=== PATIENT | female | born 1960 | race Caucasian/White ===

== ENCOUNTER → 2017-10-12 10:17 | Outpatient (CLI) | payer OTHER, SELFPAY ==
[2017-10-12 12:30] LABS: Anion Gap 8 (5-15); BUN 14 mg/dL (7-18); BUN/Creat Ratio 17.2 RATIO (10-20); Calcium,Total 8.7 mg/dL (8.5-10.1); Chloride 107 mmol/L (98-107); Cholesterol 204 mg/dL (200); Creatinine, Serum 0.82 mg/dL (0.55-1.02); EST Glomerular Filtration Rate 77 mL/min (>60); Est Glom Filt Rate - Afr Amer 94 mL/min (>60); Glucose 84 mg/dL (74-106); High Density Lipoprotein 75 mg/dL; Potassium 4.1 mmol/L (3.5-5.1); Sodium Level 141 mmol/L (136-145); Triglycerides 93 mg/dL; Very Low Density Lipoprotein 19 mg/dL (5-40)
== END ==
PROVIDERS: Family Provider Family Medicine; PCP Family Medicine; Visit Provider Family Medicine
DX: Z00.00 Encounter for general adult medical examination without abnormal findings (principal)
CPT/HCPCS: 36415; 80048; 80061; 82306; 84443

== ENCOUNTER → 2017-11-02 08:28 | Outpatient (CLI) | payer OTHER, SELFPAY ==
--- NOTE | 2017-11-02 08:30 | BI_ITS ---
MAMMOGRAPHY - BILATERAL DIAGNOSTIC REASON FOR EXAM: Female, 57 years old. Genetic abnormality. PERTINENT HISTORY: Grandmother with breast cancer. TECHNIQUE: Digital bilateral breast nilam (3D mammographic acquisition) in the CC and MLO projections. 2-D mediolateral oblique (MLO) and craniocaudad (CC) views of both breasts were obtained. CAD: Full Field Digital Mammography with Computer Added Detection was performed. COMPARISON: No comparison mammograms available at this time. If any prior films become available, an addendum to this report can be generated. FINDINGS: Breast Composition: The breasts are heterogeneously dense, which may obscure small masses. There are no dominant masses or suspicious calcifications. No other significant abnormalities are identified. BI/SCREENING MAMM (CAD), BILAT IMPRESSION: Negative diagnostic mammogram. Yearly followup mammogram recommended. (A) ASSESSMENT CATEGORY: BIRADS Category 2: Benign. A letter regarding these results will be sent to the patient by the facility within 30 days. Approximately 10% of breast cancers are not detected by mammography. A normal mammogram should not delay biopsy of a clinically suspicious abnormality. Electronically Signed: Lucas Mcknight MD at 15:23 EDT Tel [phone], Service support ,
== END ==
PROVIDERS: Family Provider Family Medicine; PCP Family Medicine; Visit Provider Family Medicine
DX: Z00.00 Encounter for general adult medical examination without abnormal findings (principal); Z12.31 Encounter for screening mammogram for malignant neoplasm of breast
CPT/HCPCS: 77063; 77067

== ENCOUNTER → 2018-11-08 | Outpatient (CLI) | payer OTHER, SELFPAY ==
[2017-05-25 07:01] VITALS: BMI 24.0
[2018-11-08 13:09] LABS: Anion Gap 3 (5-15); BUN 14 mg/dL (7-18); BUN/Creat Ratio 19.7 RATIO (10-20); Calcium,Total 9.3 mg/dL (8.5-10.1); Chloride 107 mmol/L (98-107); Cholesterol 213 mg/dL (200); Creatinine, Serum 0.71 mg/dL (0.55-1.02); EST Glomerular Filtration Rate 90 mL/min (>60); Est Glom Filt Rate - Afr Amer 109 mL/min (>60); Glucose 77 mg/dL (74-106); High Density Lipoprotein 78 mg/dL; Potassium 4.2 mmol/L (3.5-5.1); Sodium Level 141 mmol/L (136-145); Thyroid Stim Hormone (TSH) 0.23 uIU/mL (0.358-3.74); Triglycerides 70 mg/dL; Very Low Density Lipoprotein 14 mg/dL (5-40)
[2018-11-08 14:19] LABS: Vitamin D,25 Hydroxy 17.7 ng/mL (29.95-100.01)
[2018-11-10 08:39] LABS: Hep C Antibodies <0.1 s/co ratio (0.0-0.9)
== END | disposition home or self-care (01) ==
PROVIDERS: Family Provider Family Medicine; PCP Family Medicine; Referring Provider Family Medicine; Visit Provider Family Medicine
DX: Z00.00 Encounter for general adult medical examination without abnormal findings (principal)
CPT/HCPCS: 36415; 80048; 80061; 82306; 84443; 86803

== ENCOUNTER → 2019-04-23 07:43 | Outpatient (CLI) | payer OTHER, SELFPAY ==
--- NOTE | 2019-04-23 07:50 | BI_ITS ---
MAMMOGRAPHY - BILATERAL SCREENING REASON FOR EXAM: Female, 58 years old. Routine annual screening examination. PERTINENT HISTORY: Mother with breast cancer. Grandmother with breast cancer. TECHNIQUE: Digital bilateral breast helen (3D mammographic acquisition) in the CC and MLO projections. 2-D mediolateral oblique (MLO) and craniocaudad (CC) views of both breasts were obtained. CAD: Full Field Digital Mammography with Computer Added Detection was performed. COMPARISON: Comparison is made with prior examination dated November 02, 2017. FINDINGS: Breast Composition: The breasts are heterogeneously dense, which may obscure small masses. There are no dominant masses or suspicious calcifications. No other significant abnormalities are identified. There has been no significant change since the prior study. BI/SCREEN MAMM (CAD) W/HELEN BILAT IMPRESSION: Stable bilateral screening mammogram. Yearly follow-up mammogram recommended. (A) ASSESSMENT CATEGORY: BIRADS Category 1: Negative. A letter regarding these results will be sent to the patient by the facility within 30 days. Approximately 10% of breast cancers are not detected by mammography. A normal mammogram should not delay biopsy of a clinically suspicious abnormality. [id number] Electronically Signed: Lucas Mcknight, at 9:33 EDT , Service support ,
== END ==
PROVIDERS: Family Provider Family Medicine; PCP Family Medicine; Referring Provider Family Medicine; Visit Provider Family Medicine
DX: Z00.00 Encounter for general adult medical examination without abnormal findings (principal); Z12.31 Encounter for screening mammogram for malignant neoplasm of breast
CPT/HCPCS: 77063; 77067

== ENCOUNTER → 2020-01-27 09:08 | Outpatient (CLI) | payer OTHER, SELFPAY ==
[2017-05-25 07:01] VITALS: BMI 24.0
[2020-01-27 10:59] LABS: Anion Gap 4 (5-15); BUN 13 mg/dL (7-18); BUN/Creat Ratio 19.1 RATIO (10-20); Chloride 110 mmol/L (98-107); Cholesterol 224 mg/dL (200); Creatinine, Serum 0.68 mg/dL (0.55-1.02); EST Glomerular Filtration Rate 94 mL/min (>60); Est Glom Filt Rate - Afr Amer 114 mL/min (>60); Free T3 2.4 pg/mL (2.18-3.98); Glucose 88 mg/dL (74-106); High Density Lipoprotein 73 mg/dL; Potassium 3.8 mmol/L (3.5-5.1); Sodium Level 142 mmol/L (136-145); T4 Total, Thyroxin 9.5 ug/dL (4.8-13.9); Thyroid Stim Hormone (TSH) 2.94 uIU/mL (0.358-3.74); Triglycerides 107 mg/dL; Very Low Density Lipoprotein 21 mg/dL (5-40)
== END ==
PROVIDERS: PCP Family Medicine; Referring Provider Family Medicine; Visit Provider Family Medicine
DX: Z00.00 Encounter for general adult medical examination without abnormal findings (principal); E03.9 Hypothyroidism, unspecified
CPT/HCPCS: 36415; 80048; 80061; 84436; 84443; 84481

== ENCOUNTER → 2020-02-22 10:03 | Outpatient (CLI) | payer OTHER, SELFPAY ==
[2017-05-25 07:01] VITALS: BMI 24.0
--- NOTE | 2020-02-22 10:07 | RAD_ITS ---
STUDY: X-RAY - LEFT WRIST REASON FOR EXAM: Female, 59 years old. Fall. Swelling. TECHNIQUE: 4 view(s) of the wrist were obtained. COMPARISON: None. FINDINGS: There is a minimally, intra-articular displaced fracture of the radial styloid. There is overlying soft tissue swelling. The remainder of the visualized osseous structures are intact. There is no dislocation. There are no radiodense foreign bodies. RAD/Wrist min 3 Views IMPRESSION: Minimally displaced, intra-articular fracture of the radial styloid. Soft tissue swelling. Electronically Signed: Shawn Fregoso, at 11:14 EDT Tel , Service support ,
== END ==
PROVIDERS: PCP Family Medicine; Referring Provider Orthopaedic Surgery; Visit Provider Orthopaedic Surgery
DX: S63.502A Unspecified sprain of left wrist, initial encounter (principal); M79.89 Other specified soft tissue disorders
CPT/HCPCS: 73110

== ENCOUNTER → 2021-01-08 07:59 | Outpatient (CLI) | payer OTHER, SELFPAY ==
--- NOTE | 2021-01-08 08:02 | BI_ITS ---
MAMMOGRAPHY - BILATERAL SCREENING REASON FOR EXAM: Female, 60 years old. Routine annual screening examination. PERTINENT HISTORY: Mother with breast cancer. Grandmother with breast cancer. TECHNIQUE: Digital bilateral breast helen (3D mammographic acquisition) in the CC and MLO projections. 2-D mediolateral oblique (MLO) and craniocaudad (CC) views of both breasts were obtained. CAD: Full Field Digital Mammography with Computer Added Detection was performed. COMPARISON: Comparison is made with prior study 04/23/2019 and 11/02/2017. FINDINGS: Breast Composition: The breasts are heterogeneously dense, which may obscure small masses. There are no dominant masses or suspicious calcifications. Stable benign-appearing bilateral axillary lymph nodes. No other significant abnormalities are identified. There has been no significant change since the prior study. BI/SCRN MAMM (CAD)W/HELEN BILAT IMPRESSION: Stable bilateral screening mammogram. Yearly follow-up mammogram recommended. (A) ASSESSMENT CATEGORY: BIRADS Category 2: Benign. A letter regarding these results will be sent to the patient by the facility within 30 days. Approximately 10% of breast cancers are not detected by mammography. A normal mammogram should not delay biopsy of a clinically suspicious abnormality. [id number] Electronically Signed: Lucas Mcknight MD at 9:20 EDT , Service support ,
== END ==
LOC: OPBI 08:00
PROVIDERS: PCP Family Medicine; Referring Provider Family Medicine; Visit Provider Family Medicine
DX: Z12.31 Encounter for screening mammogram for malignant neoplasm of breast (principal)
CPT/HCPCS: 77063; 77067

== ENCOUNTER → 2021-01-14 11:39 | Outpatient (CLI) | payer OTHER, SELFPAY ==
[2017-05-25 07:01] VITALS: BMI 24.0
[2021-01-14 15:11] LABS: Vitamin D,25 Hydroxy 31.8 ng/mL
[2021-01-14 15:26] LABS: Anion Gap 5 (5-15); BUN 19 mg/dL (7-18); BUN/Creat Ratio 24.3 RATIO (10-20); Calcium,Total 9.3 mg/dL (8.5-10.1); Chloride 106 mmol/L (98-107); Cholesterol 260 mg/dL (200); Creatinine, Serum 0.78 mg/dL (0.55-1.02); EST Glomerular Filtration Rate 80 mL/min (>60); Est Glom Filt Rate - Afr Amer 97 mL/min (>60); Free T3 2.6 pg/mL (2.18-3.98); Glucose 89 mg/dL (74-106); High Density Lipoprotein 92 mg/dL; Potassium 3.9 mmol/L (3.5-5.1); Sodium Level 136 mmol/L (136-145); Thyroid Stim Hormone (TSH) 2.09 uIU/mL (0.358-3.74); Triglycerides 60 mg/dL; Very Low Density Lipoprotein 12 mg/dL (5-40)
== END ==
PROVIDERS: PCP Family Medicine; Visit Provider Family Medicine
DX: Z00.00 Encounter for general adult medical examination without abnormal findings (principal); E03.9 Hypothyroidism, unspecified
CPT/HCPCS: 36415; 80048; 80061; 82306; 84439; 84443; 84481

== ENCOUNTER 2021-08-19 17:02 | Outpatient (CLI) | payer OTHER, SELFPAY ==
[2021-08-19 17:04] LABS: Pathologist Comment May follow
[2021-08-19 18:40] LABS: Synovial Fld Mononuclear WBC % 71.9 %; Synovial Fld Polynuclear WBC # 4.207 10^3/uL; Synovial Fld Polynuclear WBC % 28.1 %
[2021-08-19 18:53] LABS: RBC /Synovial Fluid 0.004 10^6/uL (0)
[2021-08-19 21:32] LABS: Lymph 18 %; Monocyte /Synovial Fluid 17 %; Neutrophil 59 % (0-25); Other Cell /Synovial Fluid 6 %
[2021-08-19 21:33] LABS: AUTO B FLUID DILUENT BKGD CT WBC <0.1 RBC <0.01 (W<.1,R<.01); Appearance /Synovial Fluid Cloudy (CLEAR); Color / Synovial Fluid Yellow (Pale Yellow); Source- Body Fluid SYNOVIAL; Synovial Fld Mononuclear WBC # 10.741 10^3/ul
[2021-08-23 09:36] LABS: Pathologist Review Reviewed
== END 2021-08-19 23:59 | disposition home or self-care (01) ==
PROVIDERS: PCP Family Medicine; Visit Provider Orthopaedic Surgery
DX: M25.562 Pain in left knee (principal)
CPT/HCPCS: 87070; 87075; 87205; 89050; 89051; 89060

== ENCOUNTER → 2022-02-21 | Outpatient (CLI) | payer OTHER, SELFPAY ==
--- NOTE | 2022-02-21 08:44 | BI_ITS ---
MAMMOGRAPHY - BILATERAL SCREENING REASON FOR EXAM: Female, 61 years old. Routine annual screening examination. PERTINENT HISTORY: Mother with breast cancer. Grandmother with breast cancer. 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 TECHNIQUE: Digital bilateral breast helen (3D mammographic acquisition) in the CC and MLO projections. 2-D mediolateral oblique (MLO) and craniocaudad (CC) views of both breasts were obtained. CAD: Full Field Digital Mammography with Computer Added Detection was performed. COMPARISON: Comparison mammogram from 01/08/2021, 04/23/2019, 11/02/2017. FINDINGS: Breast Composition: The breasts are heterogeneously dense, which may obscure small masses. There are no dominant masses or suspicious calcifications. Stable small benign-appearing bilateral axillary lymph nodes. No other significant abnormalities are identified. There has been no significant change since the prior study. BI/SCRN MAMM (CAD)W/HELEN BILAT IMPRESSION: Stable bilateral screening mammogram. Yearly follow-up mammogram recommended. (A) ASSESSMENT CATEGORY: BIRADS Category 2: Benign. A letter regarding these results will be sent to the patient by the facility within 30 days. Approximately 10% of breast cancers are not detected by mammography. A normal mammogram should not delay biopsy of a clinically suspicious abnormality. Electronically Signed: Darrian Valdez, at 14:18 EDT ,
== END | disposition home or self-care (01) ==
LOC: OPBI 08:41
PROVIDERS: PCP Family Medicine; Visit Provider Family Medicine
DX: Z12.31 Encounter for screening mammogram for malignant neoplasm of breast (principal); Z80.3 Family history of malignant neoplasm of breast
CPT/HCPCS: 77063; 77067

== ENCOUNTER 2022-07-27 07:17 | Day surgery (SDC) | payer OTHER, SELFPAY ==
[2022-07-27] VITALS (7 sets, daily range): BP systolic 94–111; BP diastolic 46–75; PULSE 60–69; RESP 14–16; TEMP 36.1–36.8; O2SAT 93–99; BMI 25.6
--- NOTE | 2022-07-27 | GASB_PTH ---
PATIENT: HEYDI JOSEPH LOC: [facility] U#:[id number] AGE/SX: 61/F ROOM: RE07/27/[address]: Dr. Randal Aguilar DO : 1960 BED: DIS: 07/27/2022 SPEC #: [id number] RECD: 07/27/22 13:07 STATUS: SARAH JOSEFA #: [id number] HUI: 07/27/22 00:[address]: Randal Aguilar DEPT: SURGICAL PATHOLOGY RECD BY: Maurilio Bhatt ENTERED: 07/27/22 13:08 SP TYPE: Gastric Bx OT DR: Dr. Mike Alcantar MD Tissues: A - Esophagus, NOS B - Duodenum, NOS C - Gastric mucous membrane Procedures: Special Stain Group II Surgery Specimen Level IV Alcian Blue/PAS (control) HEADER OPERATION: EGD ([facility]) PRE-OP DIAGNOSIS: GERD TISSUE SUBMITTED: A ? Distal esophagus biopsy, B ? Duodenum biopsy, C ? Gastric antrum biopsy for H. pylori and path MICROSCOPIC DIAGNOSIS A. Distal esophagus, biopsy: Gastroesophageal junctional mucosa with chronic inflammation. No evidence of goblet cell metaplasia. See comment. B. Duodenum, biopsy: No pathologic change. C. Gastric antrum, biopsy: Chronic gastritis. See comment. AM:mile 07/28/2022 COMMENT A. Alcian blue/PAS stain with matched control supports the above diagnosis. C. The results of immunohistochemistry for Helicobacter pylori will be reported separately ([id number]). MICROSCOPIC DESCRIPTION Slides are reviewed. GROSS DESCRIPTION A - Received in fixative is one container labeled with the patient's name and designated distal esophagus. The specimen consists of multiple irregular fragments of light negron soft tissue that in aggregate measure 1.3 x 0.5 x 0.1 cm. The specimen is totally submitted in one cassette. B - Received in fixative is one container labeled with the patient's name and designated duodenum biopsy. The specimen consists of multiple irregular fragments of light negron soft tissue that in aggregate measure 1.3 x 0.3 x 0.1 cm. The specimen is totally submitted in one cassette. C - Received in fixative is one container labeled with the patient's name and designated gastric antrum. The specimen consists of two irregular fragments of light negron soft tissue that in aggregate measure 0.8 x 0.5 x 0.1 cm. The specimen is totally submitted in one cassette. / AM:mile 07/27/2022 TC:3 CPT: 26442 x3, 74249
[2022-07-27] MEDS: Lactated Ringers 1,000 ML 15 ML IV (07:44)
--- NOTE | 2022-07-27 08:08 | HP.PCM_ITS ---
History and Physical Date of Admission: 07/27/22 HEYDI JOSEPH, is a 61 F who presents to the office today for GERD that has worsened since having Covid in December 2021. Has a 20+ yr hx of GERD. Last EGD might be 20 yrs ago, was told she had a tiny amt of Avila's on biopsy. She has been on omeprazole since then, it was effective until she had covid. Since covid she finds food is slow to go down esophagus, but hasn't gotten stuck. No early satiety. Can no longer lie flat, needs to sleep on incline. Changed from omeprazole to esomeprazole, has to take it BID or else she was waking in the night with CP. Tried sucralfate but it was too chalky, no relief. No nausea or vomiting. No change in bowels. No diarrhea, constipation, melena, hematochezia. Bowels are ok. 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 Const Constitutional: No fatigue ENT ENT: Positive for difficulty swallowing Gastro GI: Positive for heartburn and difficulty swallowing; No abdominal pain, belching, bloating, change in bowel habits, change in stool character, coffee ground emesis, constipation, cramping, diarrhea, feeling full early, excessive flatus, incontinent of stools, Vomiting blood/hematemesis, Blood in stool, loose stools, Black,tarry stools, nausea/dyspepsia, pain with swallowing, vomiting or other Musc Musculoskeletal: No joint pain Skin Skin: No yellowing of the eye or itchy eyes Psych Psychiatric: Positive for anxiety and No depression Endo Endocrine: No fatigue Aller/Imm Allergy/Immunologic: No itchy eyes Philip/Lymp Hematologic/Lymphatic: No easy bleeding or easy bruising Exam Const General: cooperative, healthy appearing and comfortable Nutritional Appearance: average body habitus Orientation: alert, awake and oriented x3 Quality Reporting Tobacco Screening ([facility] 138) Smoking Status: Never smoker Assessment and Plan Assessment and Plan (1) GERD (gastroesophageal reflux disease): ?Status:?Acute ?Plan: 61 yr old female with GERD that was managed with omeprazole until she had covid in 12/2021. She may have some covid-induced gastroparesis. Rx azithromycin 500 mg daily x 5 days to see if that helps with symptoms; if so, then we could consider rx metoclopramide. Continue esomeprazole BID. Schedule EGD to eval for esophageal stricture, Avila's, PUD. f/u in office 2 wks later. ? ? ? Medications: New azithromycin 500 mg PO DAILY 5 tabs 0RF 5 days ? ? I have examined the patient and the H&P has been reviewed. There are no clinical changes since date of exam.
--- NOTE | 2022-07-27 08:15 | IMM_PTH ---
PATIENT: HEYDI JOSEPH LOC: [facility] U#:[id number] AGE/SX: 61/F ROOM: RE07/27/[address]: Dr. Randal Aguilar DO : 1960 BED: DIS: 07/27/2022 SPEC #: [id number] RECD: 07/27/22 13:35 STATUS: SARAH REMervin #: [id number] HUI: 07/27/22 08:[address]: Randal Aguilar DEPT: IMMUNOHISTOCHEMISTRY RECD BY: Kaylie Perez ENTERED: 07/27/22 13:35 SP TYPE: IMMUNO OTHR DR: Dr. Mike Alcantar MD Tissues: C - Stomach, NOS Procedures: H Pylori (initial) PHYSICIAN & INSTITUTION [place] [id number] SPECIMEN INFORMATION: Tissue Source: C ? Gastric antrum Clinical Info: GERD Specimen Number: [id number] CPT code: 59985 METHODOLOGY: Deparaffinized sections of prefer/formalin-fixed tissue or PAP/DQ stained slides are incubated with monoclonal/polyclonal antibodies/oligonucleotide probes. Localization is made via biotin free immunoperoxidase method. Appropriate controls are performed and reacted as expected. Results on target cell population are indicated in the following table: RESULTS: ANTIBODY / CLONE RESULT Block C H Pylori (polyclonal) negative These tests were developed and their performance characteristics determined by [facility]. They may not have been cleared or approved by the U.S. Food and Drug Administration. The FDA has determined that such clearance or approval is not necessary. The above immunohistochemical/dualISH markers are ordered and reviewed by the Pathologist. INTERPRETATION: C. Gastric antrum, biopsy: Negative for Helicobacter pylori organisms. AM:mile 07/28/2022
--- NOTE | 2022-07-27 08:35 | OP.EGD_ITS ---
Patient Name: Sil Dasilva Procedure Date: 07/27/2022 8:11 AM Date of : 1960 Age: 61 Procedure: Upper GI endoscopy Indications: Heartburn Providers: Randal Aguilar DO Medicines: Monitored Anesthesia Care Patient Profile: This is a 61 year old female. Refer to note in patient chart for documentation of history and physical. Patient has symptoms of chronic heartburn. Complications: No immediate complications. Procedure: Pre-Anesthesia Assessment: - Prior to the procedure, a History and Physical was performed, and patient medications and allergies were reviewed. The risks and benefits of the procedure and the sedation options and risks were discussed with the patient. All questions were answered and informed consent was obtained. Patient identification and proposed procedure were verified by the physician in the pre-procedure area. Mental Status Examination: alert and oriented. Airway Examination: normal oropharyngeal airway and neck mobility. Respiratory Examination: clear to auscultation. CV Examination: normal. Prophylactic Antibiotics: The patient does not require prophylactic antibiotics. Prior Anticoagulants: The patient has taken no previous anticoagulant or antiplatelet agents. After reviewing the risks and benefits, the patient was deemed in satisfactory condition to undergo the procedure. The anesthesia plan was to use monitored anesthesia care (MAC). Immediately prior to administration of medications, the patient was re-assessed for adequacy to receive sedatives. The heart rate, respiratory rate, oxygen saturations, blood pressure, adequacy of pulmonary ventilation, and response to care were monitored throughout the procedure. The physical status of the patient was re-assessed after the procedure. After obtaining informed consent, the endoscope was passed under direct vision. Throughout the procedure, the patient's blood pressure, pulse, and oxygen saturations were monitored continuously. The Endoscope was introduced through the mouth, and advanced to the second part of duodenum. The upper GI endoscopy was accomplished without difficulty. The patient tolerated the procedure well. Scope In: 8:21:43 AM Scope Out: 8:27:57 AM Total Procedure Duration Time 0 hours 6 minutes 14 seconds Findings: The Z-line was irregular and was found 39 cm from the incisors. Biopsies were taken with a cold forceps for histology. Verification of patient identification for the specimen was done. Estimated blood loss was minimal. Suspect gastroparesis due to absence of peristalsis and patient symptoms. Biopsies were taken with a cold forceps for histology. Verification of patient identification for the specimen was done. Estimated blood loss was minimal. A benign-appearing, intrinsic mild stenosis was found at the pylorus. This was traversed. Patchy mildly erythematous mucosa without active bleeding and with no stigmata of bleeding was found in the duodenal bulb. Biopsies were taken with a cold forceps for histology. Verification of patient identification for the specimen was done. Estimated blood loss was minimal. Impression: - Z-line irregular, 39 cm from the incisors. Biopsied. - Gastroparesis, idiopathic etiology. Biopsied. - Gastric stenosis was found at the pylorus. - Erythematous duodenopathy. Biopsied. Recommendation: - Discharge patient to home. - Resume previous diet. - Continue present medications. - Await pathology results. Procedure Code(s): --- Professional --- 40539, Esophagogastroduodenoscopy, flexible, transoral; with biopsy, single or multiple CPT copyright 2017 [employer]. All rights reserved. The codes documented in this report are preliminary and upon wood tool maker review may be revised to meet current compliance requirements. Randal Aguilar DO 07/27/2022 8:34:55 AM This report has been signed electronically. Number of Addenda: 0 Note Initiated On: 07/27/2022 8:11 AM
--- NOTE | 2022-07-27 08:36 | OP.CCLET_ITS ---
07/27/2022 Mike Alcantar MD [address] [id number] Re : Upper GI endoscopy procedure for Sil Dasilva Dear Dr. Alcantar This procedure was performed on Wednesday, July 27, 2022. My impressions and recommendations are as follows: Impressions : - Z-line irregular, 39 cm from the incisors. Biopsied. - Gastroparesis, idiopathic etiology. Biopsied. - Gastric stenosis was found at the pylorus. - Erythematous duodenopathy. Biopsied. Recommendations : - Discharge patient to home. - Resume previous diet. - Continue present medications. - Await pathology results. My findings are described in the full procedure note, which is enclosed. If I can be of further assistance, please feel free to contact me at . Sincerely, Randal Aguilar, 07/27/2022 8:34:55 AM This report has been signed electronically.
== END 2022-07-27 09:30 | disposition home or self-care (01) ==
LOC: EN 07:21 → AC 07:37
PROVIDERS: PCP Family Medicine; Referring Provider Family Medicine; Visit Provider Internal Medicine Gastroenterology
PROC: 0DJ08ZZ Inspection of Upper Intestinal Tract, Via Natural or Artificial Opening Endoscopic (ICD-10-PCS; CPT 43235; principal; 2022-07-27 08:10)
DX: K31.84 Gastroparesis (principal); Z86.16 Personal history of COVID-19; K21.9 Gastro-esophageal reflux disease without esophagitis; R13.10 Dysphagia, unspecified
CPT/HCPCS: 43239; 88305; 88313; 88342; J7120; J2405

== ENCOUNTER → 2022-08-18 | Outpatient (CLI) | payer OTHER, SELFPAY ==
[2022-08-18 12:28] LABS: Free T3 2.5 pg/mL (2.18-3.98); T4 Free Direct 1.13 ng/dL (0.76-1.46); Thyroid Stim Hormone (TSH) 1.88 uIU/mL (0.358-3.74)
== END | disposition home or self-care (01) ==
LOC: MTLAB 10:30
PROVIDERS: PCP Family Medicine; Referring Provider Family Medicine; Visit Provider Family Medicine
DX: E03.9 Hypothyroidism, unspecified (principal)
CPT/HCPCS: 36415; 84439; 84443; 84481

== ENCOUNTER → 2022-11-08 | Outpatient (CLI) | payer OTHER, SELFPAY ==
--- NOTE | 2022-11-08 09:20 | NM_ITS ---
CLINICAL: 62-year-old female with history of postprandial abdominal pain. SOLID PHASE 99m Tc SULFUR COLLOID GASTRIC EMPTYING STUDY COMPARISON: None available FINDINGS: The patient was administered 1.1 mCi of 99m Tc sulfur colloid mixed with egg and consumed per os. Image acquisitions in the anterior-posterior projections were obtained for 231 minutes. There is prompt visualization of the stomach. There is no gastroesophageal reflux identified. First order kinetics are maintained throughout the duration of the acquisitions. The T ? raw data emptying was calculated to be 101.08 minutes, (Normal 65-110 minutes). There is 92 % emptying and 8 % retention defined at 2 31 minutes following meal ingestion. NM/Gastric Emptying Study IMPRESSION: 1. NORMAL 99m Tc sulfur colloid solid phase gastric emptying imaging examination. A. There is normal and preserved solid phase gastric emptying compared to normal controls with maintained first order kinetics throughout all components of the examination. ( et al, Gastroenterology 77: 75, 1979 Silvia et al, Semin Nucl Med 12: 116, 1981 Pinky et al, SN Procedure Guidelines Adult Solid Meal Gastric Emptying Study 3.0 SNM.org). B. Greater than 90% emptying of the initial gastric contents at 4 hours post dose is consistent with normal solid phase gastric emptying which correlates with the results of the T ? emptying calculation. (Estella et al, J Nucl Med 48: 568, 2007). Electronically Signed: Jerod Johnson, at 22:37 EDT ,
== END | disposition home or self-care (01) ==
PROVIDERS: PCP Family Medicine; Referring Provider Nurse Practitioner Adult Health; Visit Provider Nurse Practitioner Adult Health
DX: K31.84 Gastroparesis (principal)
CPT/HCPCS: 78264; A9541

== ENCOUNTER → 2023-10-05 | Outpatient (CLI) | payer OTHER, SELFPAY ==
[2023-10-05 13:22] LABS: Anion Gap 5 (5-15); BUN 13 mg/dL (7-18); BUN/Creat Ratio 15.2 RATIO (10-20); Calcium,Total 9.5 mg/dL (8.5-10.1); Chloride 110 mmol/L (98-107); Cholesterol 259 mg/dL (200); Creatinine, Serum 0.86 mg/dL (0.55-1.02); EST Glomerular Filtration Rate 72 mL/min (>60); Est Glom Filt Rate - Afr Amer 87 mL/min (>60); Free T3 2.1 pg/mL (2.18-3.98); Glucose 92 mg/dL (74-106); High Density Lipoprotein 87 mg/dL; Potassium 3.9 mmol/L (3.5-5.1); Sodium Level 142 mmol/L (136-145); T4 Free Direct 1.15 ng/dL (0.76-1.46); Thyroid Stim Hormone (TSH) 3.71 uIU/mL (0.358-3.74); Triglycerides 57 mg/dL; Very Low Density Lipoprotein 11 mg/dL (5-40)
== END | disposition home or self-care (01) ==
LOC: MFPLAB 09:41
PROVIDERS: PCP Family Medicine; Visit Provider Family Medicine
DX: Z00.00 Encounter for general adult medical examination without abnormal findings (principal); E03.9 Hypothyroidism, unspecified
CPT/HCPCS: 36415; 80048; 80061; 84439; 84443; 84481

== ENCOUNTER → 2023-10-11 | Outpatient (CLI) | payer OTHER, SELFPAY ==
--- NOTE | 2023-10-11 08:34 | BI_ITS ---
MAMMOGRAPHY - BILATERAL SCREENING REASON FOR EXAM: Female, 63 years old. Routine annual screening examination. PERTINENT HISTORY: Mother with breast cancer. Grandmother with breast cancer. TECHNIQUE: Digital bilateral breast helen (3D mammographic acquisition) in the CC and MLO projections. 2-D mediolateral oblique (MLO) and craniocaudad (CC) views of both breasts were obtained. CAD: Full Field Digital Mammography with Computer Added Detection was performed. COMPARISON: Comparison is made with prior study February 21, 2022 and January 08, 2021. FINDINGS: Breast Composition: The breasts are heterogeneously dense, which may obscure small masses. There are no dominant masses or suspicious calcifications. Stable small benign-appearing bilateral axillary lymph nodes. No other significant abnormalities are identified. There has been no significant change since the prior study. BI/SCRN MAMM (CAD)W/HELEN BILAT IMPRESSION: Stable bilateral screening mammogram. Yearly follow-up mammogram recommended. (A) ASSESSMENT CATEGORY: BIRADS Category 2: Benign. A letter regarding these results will be sent to the patient by the facility within 30 days. Approximately 10% of breast cancers are not detected by mammography. A normal mammogram should not delay biopsy of a clinically suspicious abnormality. [id number] Electronically Signed: Lucas Mcknight MD at 11:45 EDT ,
== END | disposition home or self-care (01) ==
LOC: OPBI 08:31
PROVIDERS: PCP Family Medicine; Referring Provider Family Medicine; Visit Provider Family Medicine
DX: Z12.31 Encounter for screening mammogram for malignant neoplasm of breast (principal); Z80.3 Family history of malignant neoplasm of breast
CPT/HCPCS: 77063; 77067

== ENCOUNTER → 2024-10-16 | Outpatient (CLI) | payer OTHER, SELFPAY ==
[2024-10-16 15:44] LABS: ALB/GLOB Ratio 1.8 RATIO (0.9-2.4); AST(SGOT) 21 U/L (<=31); Alanine Aminotransfer ALT/SGPT 17 U/L (<=34); Albumin, Serum 4.4 g/dL (3.4-4.8); Alkaline Phosphatase 55 U/L (35-104); Anion Gap 10 (5-15); BUN 18 mg/dL (4-19); BUN/Creat Ratio 24.2 RATIO (10-20); Calcium,Total 9.5 mg/dL (7.6-11.0); Chloride 105 mmol/L (98-108); Cholesterol 262 mg/dL (<=200); Creatinine, Serum 0.72 mg/dL (0.70-1.20); EST Glomerular Filtration Rate 94 (>60); Free T3 2.7 pg/mL (2.18-3.98); Globulin 2.4 g/dL (2.2-4.2); Glucose 93 mg/dL (70-99); High Density Lipoprotein 84 mg/dL; Low Density Lipoprotein Calc. 167 mg/dL; Potassium 4.1 mmol/L (3.3-5.1); Protein, Total 6.9 g/dL (5.9-8.4); Sodium Level 139 mmol/L (133-145); Total Bilirubin 0.34 mg/dL (0.00-1.30); Triglycerides 58 mg/dL; Very Low Density Lipoprotein 12 mg/dL (5-40); cholesterol:hdl ratio screen 3.14
== END | disposition home or self-care (01) ==
LOC: MFPLAB 10:07
PROVIDERS: PCP Family Medicine; Referring Provider Family Medicine; Visit Provider Family Medicine
DX: E03.9 Hypothyroidism, unspecified (principal); E78.00 Pure hypercholesterolemia, unspecified
CPT/HCPCS: 36415; 80053; 80061; 84439; 84443; 84481

== ENCOUNTER 2024-10-24 06:02 | Day surgery (SDC) | payer OTHER, SELFPAY ==
[2024-10-24] VITALS (7 sets, daily range): BP systolic 87–97; BP diastolic 56–62; PULSE 60–76; RESP 16–18; TEMP 36.2–36.8; O2SAT 94–100; BMI 25.2
--- NOTE | 2024-10-24 06:11 | PCM.PRE.AN2 ---
ASA Classification* ASA Classification ASA Classification: 2 Assessment & Plan Anesthesia* Anesthesia Assessment Anesthesia Assessment: Discussed sedation and/or anesthesia options, risks, benefits, and alternatives with patient/parents/legal guardian/POA. Questions invited. The patient/parents/legal guardian/POA seems to understand and agrees to proceed with anesthesia plan. Reviewed the physical assessment, medical history, allergy history and patient home medications list prior to surgery/procedure/anesthetic and documented any changes. Performed airway and anesthesia risk assessments. Anesthesia Type Anesthesia Type: MAC Anesthesia Focused Assessment* Airway Assessment Mouth opens: >3 cm Mallampati Score: II Focused Labs Anesthesia Preop lab: CBC CHEMISTRY Potassium 4.1 mmol/L (3.3-5.1) 10/16/24 10:10/16/24 Sodium 139 mmol/L (133-145) 10/16/24 10:10/16/24 BUN 18 mg/dL (4-19) 10/16/24 10:07 10/16/24 Creatinine 0.72 mg/dL (0.70-1.20) 10/16/24 10:07 10/16/24 Glucose 93 mg/dL (70-99) 10/16/24 10:07 10/16/24 TSH 1.420 uIU/mL (0.300-4.200) 10/16/24 10:07 10/16/24 COAG Pre-Assessment Diagnosis/Proposed Procedure Planned Operative Procedure(s): EGD Anesthesia History Anesthesia History - pump installation and servicer: Anesthesia History - pump installation and servicer Hx Hospitalization No 10/23/24 11:41 Any Problems With Anesthesia No 10/23/24 11:41 Cholinesterase deficiency No 10/23/24 11:41 You/Your Family Experience No 10/23/24 11:41 fever (hyperthermia) with Relationship Recent Exposure to Contagious No 07/27/22 07:40 Disease Does patient have nerve No 10/23/24 11:41 stimulator Patient instructed to have device shut off --Does patient have Pacemaker or ICD? When Was Last Pacemaker Check QUESTION #4 FULL TEXT: You/Your Family Experience fever (hyperthermia) with Anesthesia Last Oral Intake Last Oral intake: Last Oral Intake NPO since Meds taken in AM with sips of water? Meds patient instructed to take am of surgery PONV PONV - pump installation and servicer: PONV - pump installation and servicer Female Yes 10/23/24 11:41 HX of Motion Sickness Yes 10/23/24 11:41 HX of N/V After Surgery No 10/23/24 11:41 Non-Smoker Yes 10/23/24 11:41 Duration of Surgery greater No 10/23/24 11:41 than 60 minutes Number of Risk Factors 3 10/23/24 11:41 PONV Score Moderate Risk 10/23/24 11:41 Height & Weight Height & Weight: Anesthesia: Height & Weight Height 5 ft 6 in 09/17/24 08:19 Respiratory Assessment Respiratory Assessment - pump installation and servicer: Respiratory Tract Infection Hx - pump installation and servicer Hx Respiratory Tract Infection No 10/23/24 11:41 STOP Sleep Apnea STOP Sleep Apnea - pump installation and servicer: STOP Sleep Apnea - pump installation and servicer Hx Hypertension No 10/23/24 11:41 Hx Sleep Apnea No 10/23/24 11:41 CPAP BIPAP Do you snore loudly (louder No 10/23/24 11:41 than talking or can be heard Do you often feel tired/ No 10/23/24 11:41 fatigued/ sleepy during daytime? Has anyone observed you stop No 10/23/24 11:41 breathing during sleep? STOP Results Negative 10/23/24 11:41 QUESTION #5 FULL TEXT : Do you snore loudly (louder than talking or can be heard through closed doors)? 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 Specify any problems Hx of Preganancy in last 3 No 10/23/24 11:41 Months Nurse Filling Out Transfusion DSCHRIBER 10/23/24 11:41 & Questions: Date: 10/23/24 10/23/24 11:41 Time: 11:42 10/23/24 11:41 Patient unable to answer at this time (ie. confused, unrespo /Reproduction History /Reproductive History - pump installation and servicer: /Reproductive Hx- pump installation and servicer Hx Now No 10/23/24 11:41 Gestational Age (in weeks): EDC: Hx Hx Para Hx Section SAB No 10/23/24 11:41 [facility] Medical History Avila esophagus Asthma Wears glasses Post-menopausal Depression Anxiety Alcohol use Thyroid disease Anemia High cholesterol Migraine headache History of IBS Gastric reflux Non-smoker Chest pain Home Medications ?Medication ?Instructions ?Recorded ?Last Taken ?Type levothyroxine 100 mcg tablet 88 mcg PO DAILY 05/23/17 Unknown History duloxetine 20 mg capsule,delayed 20 mg PO DAILY 07/25/22 Unknown History release (Cymbalta) loratadine 10 mg tablet (Claritin) 10 mg PO QDAY PRN allergy symptoms 09/17/24 Unknown History omeprazole 40 mg capsule,delayed 40 mg PO DAILY 10/23/24 Unknown History release Allergy/AdvReac Type Severity Reaction Status Date / Time No Known Allergies Allergy Verified 10/23/24 11:40 Surgical History History of esophagogastroduodenoscopy (EGD) History of endometrial ablation Hx of laparoscopy Hx of hysterectomy, total Social History Smoking Status: Never smoker alcohol intake: current details: casual substance use type: does not use additional social history: no asa or ibuprofen, no history of blood clots Review of Systems (Anesthesia) ROS Narrative System reviewed and no additional complaints, except as documented.
--- NOTE | 2024-10-24 07:00 | EGD_PTH ---
PATIENT: HEYDI JOSEPH LOC: [facility] U#:[id number] AGE/SX: 64/F ROOM: RE10/24/[address]: Dr. Randal Aguilar DO : 1960 BED: DIS: 10/24/2024 SPEC #: [id number] RECD: 10/24/24 09:52 STATUS: SARAH JOSEFA #: [id number] HUI: 10/24/24 07:[address]: Randal Aguilar DEPT: SURGICAL PATHOLOGY RECD BY: Eusebio Pedro ENTERED: 10/24/24 11:33 SP TYPE: EGD BIOPSY ELIA DR: Dr. Mike Alcantar MD Tissues: A - Gastric mucous membrane B - Gastric mucous membrane C - Esophagus, NOS Procedures: Immunohistochemical Stains Surgery Specimen Level IV HEADER OPERATION: EGD with biopsy PRE-OP DIAGNOSIS: GERD, early satiety TISSUE SUBMITTED: A- Gastric cardia biopsy, B- Gastric curvature, C- Distal esophagus biopsy MICROSCOPIC DIAGNOSIS A. Stomach, gastric cardia, biopsy: * Oxyntic mucosa with mild chronic focal active inflammation (See note) Note: An immunostain for Helicobacter pylori organisms is in progress and will be reported as an addendum B. Stomach, gastric curvature, biopsy: * Oxyntic mucosa with mild chronic focal active inflammation * No morphologic evidence of Helicobacter pylori organisms C. Distal esophagus, biopsy: * Benign squamous epithelium * Oxyntocardiac type mucosa with mild chronic inflammation, negative for goblet cells MICROSCOPIC DESCRIPTION Slides are reviewed. These tests were developed and their performance characteristics determined by [facility]. They may not have been cleared or approved by the U.S. Food and Drug Administration. The FDA has determined that such clearance or approval is not necessary. The above immunohistochemical/dualISH markers are ordered and reviewed by the Pathologist. GROSS DESCRIPTION A. Received in formalin in a container labeled with the patient's name, date of , and gastric cardia biopsy are 2 negron-pink fragments of mucosal tissue measuring 0.3 x 0.2 x 0.2 cm and 0.6 x 0.2 x 0.2 cm. Submitted in toto in A1. B. Received in formalin in a container labeled with the patient's name, date of , and gastric curvature are 2 negron-pink fragments of mucosal tissue, each measuring 0.6 x 0.2 x 0.2 cm. Submitted in toto in B1. C. Received in formalin in a container labeled with the patient's name, date of , and distal esophagus is a 0.6 x 0.3 x 0.2 cm fragment of negron-pink mucosal tissue. Submitted in toto in C1. KRISTA 10/25/2024 CPT:[id number] ADDENDUM ADDENDUM 10/25/2024 16:40 ADDENDUM 10/25/2024 16:40 ADDENDUM 10/25/2024 16:40 ADDENDUM 10/25/2024 16:40 ADDENDUM 10/25/2024 16:40 The immunostain for Helicobacter pylori organisms is negative
--- NOTE | 2024-10-24 07:30 | PCM.HP.STD ---
HPI - General General Date of Admission: 10/24/24 Date of Service: 10/24/24 Chief Complaint: dysphagia, regurgitation and morgan's esophagus HPI Narrative 63y/o female presents for consultation with complaints of heartburn, regurgitation and early satiety. She was last seen by Akilah Magdaleno CNP January 2023 for c/o GERD and gastroparesis. EGD 07/27/2022 neg. Morgan's, neg. H. pylori, neg. celiac sprue - Z-line irregular, 39 cm from the incisors. Biopsied. - Gastroparesis, idiopathic etiology. Biopsied. - Gastric stenosis was found at the pylorus. --- possible cause of delayed gastric emptying - Erythematous duodenopathy. Biopsied. GES 11/08/2022 normal COLON: reports this was with Dr. Kerr in 2017 and recall in 10 years - the past few months have been horrible - sleeping at 45 degrees - these are the symptoms she was having in 2022 - Omeprazole 40mg every am - Pepto PRN - during the day she has some heartburn - denies any angina - c/o belching - early satiety - avoid eating 4h before bed - frequent regurgitation - holistic practitioner recommended a breath test for SIBO - she did not complete this - I advised if she has retained gastric contents/delayed emptying secondary to pyloric stenosis the breath test will be positive - recommend holding off completion until EGD completed - denies any N/V - denies any weight loss - denies any dysphagia - weight was 197 in 2022 (THIS WAS TYPO) - reports she has never been over 160 in her life - caffeine intake daily - reduced alcohol intake - non-smoker - denies any recent use of NSAIDS - reports a history of frequent NSAID use [facility] Medical History Morgan esophagus Asthma Wears glasses Post-menopausal Depression Anxiety Alcohol use Thyroid disease Anemia High cholesterol Migraine headache History of IBS Gastric reflux Non-smoker Chest pain Home Medications ?Medication ?Instructions ?Recorded ?Last Taken ?Type levothyroxine 100 mcg tablet 88 mcg PO DAILY 05/23/17 10/23/24 History duloxetine 20 mg capsule,delayed 20 mg PO DAILY 07/25/22 10/23/24 History release (Cymbalta) loratadine 10 mg tablet (Claritin) 10 mg PO QDAY PRN allergy symptoms 09/17/24 10/23/24 History omeprazole 40 mg capsule,delayed 40 mg PO DAILY 10/23/24 10/23/24 History release Allergy/AdvReac Type Severity Reaction Status Date / Time No Known Allergies Allergy Verified 10/23/24 11:40 Surgical History History of esophagogastroduodenoscopy (EGD) History of endometrial ablation Hx of laparoscopy Hx of hysterectomy, total Social History Smoking Status: Never smoker alcohol intake: current details: casual substance use type: does not use additional social history: no asa or ibuprofen, no history of blood clots ROS Constitutional Constitutional: Denies fatigue, fever(s), poor appetite, weight gain or weight loss Gastrointestinal Gastrointestinal: Denies belching, bloating, change in bowel habits, change in stool character, chewing difficulty, coffee ground emesis, constipation, cramping, diarrhea, dyspepsia, dysphagia, early satiety, excessive flatus, fecal incontinence, heartburn, hematemesis, hematochezia, hemorrhoids, loose stools, melena, nausea, odynophagia, rectal bleeding, tenesmus, vomiting or weight changes Vital Signs Vital Signs Vital Signs: 10/24/24 06:31 10/24/24 06:31 Temperature 98.2 F Temperature Source Temporal Pulse Rate 64 Respiratory Rate 16 Respiratory Pattern Normal Blood Pressure 97/62 Blood Pressure Mean 73 Blood Pressure Source Monitor Blood Pressure Position Semi-Fowlers Blood Pressure Location Right Arm Pulse Ox 100 Oxygen Delivery Method Room Air Weight Weight: 156 lb 8.451 oz Body Mass Index (BMI) 25.2 Physical Exam Const alert, oriented x3, no apparent distress and healthy appearing General Appearance: cooperative GI normal to inspection, nondistended, normoactive bowel sounds, soft to palpation, non-tender and non-distended Percussion: normal to percussion Rectal Exam: deferred Assessment & Plan Assessment/Plan (1) Early satiety: (2) Gastroparesis: (3) GERD (gastroesophageal reflux disease): PLAN: Assessment and Plan Assessment and Plan (1) GERD (gastroesophageal reflux disease): Status: Acute (2) Early satiety: Status: Acute Medications: New omeprazole take 30 minutes before breakfast and dinner 40 mg PO BID 180 caps 1RF Discontinued omeprazole Discontinued Reason: Order Changed 40 mg PO QDAY Plan 63y/o female presents for consultation with complaints of heartburn, regurgitation and early satiety. She was last seen by Akilah Magdaleno CNP January 2023 for c/o GERD and early satiety. EGD revealed mild pyloric stenosis, traversed without difficulty and biopsies were all unremarkable. She reports a remote history of Morgan's, with all follow-up biopsies unremarkable. Despite taking Omeprazole 40mg daily she c/o frequent regurgitation worse with laying down and early satiety. I have increased PPI to BID and scheduled her for an EGD. GES was previously unremarkable in 2022.
--- NOTE | 2024-10-24 08:08 | PCM.POST.ANE ---
Anesthesia: Postop Eval I Current Vital Signs Temperature: 97.1 F Pulse Rate: 67 Blood Pressure: 91/58 Respiratory Rate: 16 Pulse Ox: 95 Oxygen Delivery Method: Room Air Assessment Airway patent: Yes Spontaneous unlabored respirations: Yes Mental status: Awake and Calm nausea: No Vomiting: No Anesthesia Complication: No Fluid Hydration Crystalloid volume administer (ml): 30 Total IV fluid infused: 30 Progress Note Anesthesia document: Postop Eval 1 completed: Yes
--- NOTE | 2024-10-24 08:12 | OP.EGD_ITS ---
Patient Name: Sil Dasilva Procedure Date: 10/24/2024 7:37 AM Date of : 1960 Age: 64 Procedure: Upper GI endoscopy Indications: Functional Dyspepsia, Heartburn Providers: Randal Aguilar DO Referring MD: Mike Alcantar MD Medicines: Monitored Anesthesia Care Patient Profile: This is a 64 year old female. Refer to note in patient chart for documentation of history and physical. Patient has symptoms of chronic dyspepsia, chronic heartburn, chronic nausea and chronic regurgitation. Complications: No immediate complications. Procedure: Pre-Anesthesia Assessment: - Prior to the procedure, a History and Physical was performed, and patient medications and allergies were reviewed. The patient is competent. The risks and benefits of the procedure and the sedation options and risks were discussed with the patient. All questions were answered and informed consent was obtained. Patient identification and proposed procedure were verified by the physician in the pre-procedure area. Mental Status Examination: alert and oriented. Airway Examination: normal oropharyngeal airway and neck mobility. Respiratory Examination: clear to auscultation. CV Examination: normal. Prophylactic Antibiotics: The patient does not require prophylactic antibiotics. Prior Anticoagulants: The patient has taken no anticoagulant or antiplatelet agents. ASA Grade Assessment: II - A patient with mild systemic disease. After reviewing the risks and benefits, the patient was deemed in satisfactory condition to undergo the procedure. The anesthesia plan was to use monitored anesthesia care (MAC). Immediately prior to administration of medications, the patient was re-assessed for adequacy to receive sedatives. The heart rate, respiratory rate, oxygen saturations, blood pressure, adequacy of pulmonary ventilation, and response to care were monitored throughout the procedure. The physical status of the patient was re-assessed after the procedure. After obtaining informed consent, the endoscope was passed under direct vision. Throughout the procedure, the patient's blood pressure, pulse, and oxygen saturations were monitored continuously. The Endoscope was introduced through the mouth, and advanced to the second part of duodenum. The upper GI endoscopy was accomplished without difficulty. The patient tolerated the procedure well. Scope In: 7:48:30 AM Scope Out: 7:54:10 AM Total Procedure Duration Time 0 hours 5 minutes 40 seconds Findings: The Z-line was irregular and was found 39 cm from the incisors. Biopsies were taken with a cold forceps for histology. Verification of patient identification for the specimen was done. Estimated blood loss was minimal. A medium-sized hiatal hernia was present. Patchy moderately congested mucosa was found in the cardia and on the greater curvature of the stomach. Biopsies were taken with a cold forceps for histology. Verification of patient identification for the specimen was done. Estimated blood loss was minimal. Biopsies were taken with a cold forceps for Helicobacter pylori testing. Verification of patient identification for the specimen was done. Estimated blood loss was minimal. Diffuse prominent gastric folds were found in the entire examined stomach. Biopsies were taken with a cold forceps for histology. Verification of patient identification for the specimen was done. Estimated blood loss was minimal. No gross lesions were noted in the entire examined duodenum. Impression: - Z-line irregular, 39 cm from the incisors. Biopsied. - Medium-sized hiatal hernia. - Congestive gastropathy. Biopsied. - Enlarged gastric folds. Biopsied. - No gross lesions in the entire examined duodenum. Recommendation: - Discharge patient to home. - Resume previous diet. - Continue present medications. - Await pathology results. Procedure Code(s): --- Professional --- 71098, Esophagogastroduodenoscopy, flexible, transoral; with biopsy, single or multiple CPT copyright 2021 [employer]. All rights reserved. The codes documented in this report are preliminary and upon nutrition aide review may be revised to meet current compliance requirements. Randal Aguilar DO 10/24/2024 8:12:45 AM This report has been signed electronically. Number of Addenda: 0 Note Initiated On: 10/24/2024 7:37 AM
--- NOTE | 2024-10-24 08:13 | OP.CCLET_ITS ---
10/24/2024 Mike Alcantar MD [address] [id number] Re : Upper GI endoscopy procedure for Sil Dasilva Dear Dr. Alcantar This procedure was performed on October. My impressions and recommendations are as follows: Impressions : - Z-line irregular, 39 cm from the incisors. Biopsied. - Medium-sized hiatal hernia. - Congestive gastropathy. Biopsied. - Enlarged gastric folds. Biopsied. - No gross lesions in the entire examined duodenum. Recommendations : - Discharge patient to home. - Resume previous diet. - Continue present medications. - Await pathology results. My findings are described in the full procedure note, which is enclosed. If I can be of further assistance, please feel free to contact me at . Sincerely, Randal Aguilar, 10/24/2024 8:12:45 AM This report has been signed electronically.
--- NOTE | 2024-10-24 14:27 | PCM.POSTANE2 ---
Anesthesia Postop Eval I Sum Postop Eval Completion status Anesthesia document: Postop Eval 1 completed: Yes Anesthesia Postop Eval I Summary Anesthesia Postop Eval I Summary: Anesthesia Postop Eval I: Assessment Summary Airway patent Yes 10/24/24 08:09 [email or web address] Spontaneous unlabored Yes 10/24/24 08:09 [email or web address] respirations Mental status Awake,Calm 10/24/24 08:09 [email or web address] nausea No 10/24/24 08:09 [email or web address] Vomiting No 10/24/24 08:09 [email or web address] Anesthesia Postop Eval I: Fluid Summary Crystalloid volume administer 30 10/24/24 08:09 [email or web address] (ml) Colloids volume administered ( ml) Blood Product volume administered (ml) Total IV fluid infused 30 10/24/24 08:09 [email or web address] Anesthesia Postop Eval I: Summary Notes Anesthesia Complication No 10/24/24 08:09 [email or web address] Anesthesia Complication Comment: Post-operative progress note Anesthesia: Postop Eval II Evaluation Mental status: Awake and Calm Pain Level: 0 nausea: No Vomiting: No Complications Anesthesia Complication: No
== END 2024-10-24 08:39 | disposition home or self-care (01) ==
LOC: EN 06:03 → AC 06:05
PROVIDERS: PCP Family Medicine; Referring Provider Family Medicine; Visit Provider Internal Medicine Gastroenterology
PROC: 0DJ08ZZ Inspection of Upper Intestinal Tract, Via Natural or Artificial Opening Endoscopic (ICD-10-PCS; CPT 43235; principal; 2024-10-24 06:55)
DX: R68.81 Early satiety (principal); K44.9 Diaphragmatic hernia without obstruction or gangrene; R13.10 Dysphagia, unspecified; K21.9 Gastro-esophageal reflux disease without esophagitis; E78.00 Pure hypercholesterolemia, unspecified; K22.70 Barrett's esophagus without dysplasia; R11.10 Vomiting, unspecified; F32.A Depression, unspecified; F41.9 Anxiety disorder, unspecified; Z79.899 Other long term (current) drug therapy; Z90.710 Acquired absence of both cervix and uterus; K31.84 Gastroparesis; K22.89 Other specified disease of esophagus; K29.70 Gastritis, unspecified, without bleeding
CPT/HCPCS: 43239; 88305; 88342; A4216; J2405

== ENCOUNTER → 2024-11-01 | Outpatient (CLI) | payer OTHER, SELFPAY ==
[2024-11-01 14:39] LABS: Erythrocyte Sedimentation Rate 3 mm/hr (0-30)
[2024-11-01 15:41] LABS: Vitamin B12 294 pg/mL (180-914)
[2024-11-03 07:07] LABS: CRP, High Sensitivity 1.03 mg/L (0.00-3.00)
[2024-11-05 16:08] LABS: Albumin 3.8 g/dL (2.9-4.4); Alpha-1-Globulins 0.3 g/dL (0.0-0.4); Alpha-2-Globulins 0.6 g/dL (0.4-1.0); Anti-Parietal Cell AB, QN 17.3 Units (0.0-20.0); Gamma Globulin 0.8 g/dL (0.4-1.8); Gastrin, Serum 1110 pg/mL (0-115); Immunoglobulin A 98 mg/dL (87-352); Immunoglobulin G 886 mg/dL (586-1602); Immunoglobulin M 52 mg/dL (26-217); Intrinsic Factor Ab 0.9 AU/mL (0.0-1.1); PROEL- TOTAL PROTEIN 6.4 g/dL (6.0-8.5)
== END | disposition home or self-care (01) ==
LOC: LAB 14:09
PROVIDERS: PCP Family Medicine; Referring Provider Internal Medicine Gastroenterology; Visit Provider Internal Medicine Gastroenterology
DX: R68.81 Early satiety (principal); K21.9 Gastro-esophageal reflux disease without esophagitis
CPT/HCPCS: 36415; 82607; 82784; 82941; 83516; 84165; 85652; 86141; 86334; 86340

== ENCOUNTER → 2024-12-13 | Outpatient (CLI) | payer OTHER, SELFPAY ==
--- NOTE | 2024-12-13 08:45 | BI_ITS ---
EXAM: SCRN MAMM (CAD)W/HELEN BILAT 12/13/2024 CLINICAL HISTORY: F, Age 64 y/o , SCREENING TECHNIQUE: Bilateral screening digital breast tomosynthesis with 2D and 3D images. Computer aided detection. COMPARISON: Prior exam(s) dated 10/11/2023, 02/21/2022, 01/08/2021. FINDINGS: TISSUE DENSITY: The breast tissue is almost entirely fatty. Bilateral Breast Mammographic Findings: No significant masses, calcifications or other abnormalities are identified. BI/SCRN MAMM (CAD)W/HELEN BILAT IMPRESSION: Right Breast: BIRADS 1 NEGATIVE. Left Breast: BIRADS 1 NEGATIVE. OVERALL FINAL ASSESSMENT: BIRADS 1 NEGATIVE. RECOMMENDATION: Routine annual follow-up in 1 Year A letter with findings and recommendations will be mailed to the patient. Reading Location: [id number]
== END | disposition home or self-care (01) ==
LOC: OPBI 08:43
PROVIDERS: PCP Family Medicine; Referring Provider Family Medicine; Visit Provider Family Medicine
DX: Z12.31 Encounter for screening mammogram for malignant neoplasm of breast (principal)
CPT/HCPCS: 77063; 77067

== ENCOUNTER → 2024-12-24 | Outpatient (CLI) | payer OTHER, SELFPAY ==
[2024-12-26 17:07] LABS: Gastrin, Serum 114 pg/mL (0-115)
== END | disposition home or self-care (01) ==
LOC: LAB 09:42
PROVIDERS: PCP Family Medicine; Referring Provider Nurse Practitioner Acute Care; Visit Provider Nurse Practitioner Acute Care
DX: R68.81 Early satiety (principal); E16.4 Increased secretion of gastrin
CPT/HCPCS: 36415; 82941